=== PATIENT | female | born 1950 | race Caucasian/White ===

== ENCOUNTER 2017-05-26 18:01 | Inpatient (IN) | payer MEDICARE ==
[~2017-05-26] VITALS: Ht 177.8 cm; Wt 139.0 kg
[2017-05-26 18:21] LABS: BASO % 0.3 % (0.1-1.2); EOS % 0.4 % (0.7-5.8); GRAN # 8.9 10_X3_uL (1.6-6.1); GRAN % 85.1 % (34.0-71.1); HEMATOCRIT 33.4 % (34-45); HEMOGLOBIN 11.2 g/dL (11.2-15.7); LYMPH % 9.6 % (19.3-51.7); MEAN CORPUSCULAR HEMOGLOBIN 29.2 pg (27.0-33.0); MEAN CORPUSCULAR HGB CONC 33.5 g/dL (32.0-36.0); MEAN PLATELET VOLUME 9.3 fl (7.5-11.5); MONO # 0.5 10_X3_uL (0.2-0.9); MONO % 4.6 % (4.7-12.5); PLATELET COUNT 253 x10_3/uL (182-369); RED BLOOD COUNT 3.84 x10_6/uL (3.9-5.2); WHITE BLOOD COUNT 10.4 x10_3/uL (4.0-10.0)
[2017-05-26 18:39] LABS: ALBUMIN 3.5 gm/dL (3.4-5.0); ALKALINE PHOSPHATASE 101 U/L (50-136); ALT/SGPT 10 U/L (3.5-33.9); AST/SGOT 9 U/L (7.04-26.96); BILIRUBIN,TOTAL 0.35 mg/dL (0.0-1.0); BLOOD UREA NITROGEN 23 mg/dL (7-18); CALCIUM 9.2 mg/dL (8.7-10.7); CARBON DIOXIDE 21 mmol/L (21-32); CREATINE KINASE 47 U/L (21-215); CREATININE 0.8 mg/dL (0.6-1.3); GLUCOSE,RANDOM 214 mg/dL (70-99); POTASSIUM 3.8 mmol/L (3.5-5.1); SODIUM 136 mmol/L (136-145); TOTAL PROTEIN 6.4 gm/dL (6.4-8.2)
[2017-05-26 18:46] LABS: ARTERIAL BLD GAS O2 SATURATION 93.4 % (94-98); ARTERIAL BLOOD GAS BASE EXCESS -2.1 mmol/L (-2.0-3.0); ARTERIAL BLOOD GAS HCO3 21.7 mmol/L (22-26); ARTERIAL BLOOD GAS PCO2 35.8 mmHg (32-45)
[2017-05-27 00:58] LABS: CKMB 1.6 ng/ml (0.0-5.0)
[2017-05-27 01:13] LABS: TROP-I < 0.30 NG/ML (0.00-0.30)
[2017-05-27 06:51] LABS: BASO % 0.4 % (0.1-1.2); EOS # 0.1 10_X3_uL (0.0-0.4); EOS % 0.9 % (0.7-5.8); GRAN # 3.8 10_X3_uL (1.6-6.1); GRAN % 67.2 % (34.0-71.1); HEMATOCRIT 29.9 % (34-45); HEMOGLOBIN 9.5 g/dL (11.2-15.7); LYMPH # 1.3 10_X3_uL (1.2-3.7); LYMPH % 23.3 % (19.3-51.7); MEAN CORPUSCULAR HEMOGLOBIN 28.4 pg (27.0-33.0); MEAN CORPUSCULAR HGB CONC 31.8 g/dL (32.0-36.0); MEAN CORPUSCULAR VOLUME 89.3 fL (79-95); MEAN PLATELET VOLUME 10.2 fl (7.5-11.5); MONO # 0.5 10_X3_uL (0.2-0.9); MONO % 8.2 % (4.7-12.5); PLATELET COUNT 223 x10_3/uL (182-369); RED BLOOD COUNT 3.35 x10_6/uL (3.9-5.2); RED CELL DISTRIBUTION WIDTH 15.5 % (11.7-14.4); WHITE BLOOD COUNT 5.6 x10_3/uL (4.0-10.0)
[2017-05-27 07:33] LABS: CKMB 1.8 ng/ml (0.0-5.0)
[2017-05-27 07:37] LABS: TROP-I < 0.30 NG/ML (0.00-0.30)
[2017-05-27 08:09] LABS: CALCIUM 8.5 mg/dL (8.7-10.7); MAGNESIUM 1.5 mg/dL (1.8-2.4); POTASSIUM 3.6 mmol/L (3.5-5.1)
[2017-05-27 13:04] LABS: CKMB 2.1 ng/ml (0.0-5.0); TROP-I < 0.30 NG/ML (0.00-0.30)
[2017-05-28 06:40] LABS: HEMATOCRIT 31.2 % (34-45); HEMOGLOBIN 9.8 g/dL (11.2-15.7); MEAN CORPUSCULAR HEMOGLOBIN 28.2 pg (27.0-33.0); MEAN CORPUSCULAR HGB CONC 31.4 g/dL (32.0-36.0); MEAN CORPUSCULAR VOLUME 89.9 fL (79-95); MEAN PLATELET VOLUME 9.6 fl (7.5-11.5); RED BLOOD COUNT 3.47 x10_6/uL (3.9-5.2); RED CELL DISTRIBUTION WIDTH 15.4 % (11.7-14.4); WHITE BLOOD COUNT 5.3 x10_3/uL (4.0-10.0)
[2017-05-28 06:58] LABS: CALCIUM 8.4 mg/dL (8.7-10.7); CREATININE 1.2 mg/dL (0.6-1.3); MAGNESIUM 1.5 mg/dL (1.8-2.4); POTASSIUM 3.8 mmol/L (3.5-5.1)
[2017-05-28 14:23] LABS: URINE BILIRUBIN NEGATIVE (NEGATIVE); URINE BLOOD NEGATIVE (NEGATIVE); URINE GLUCOSE (UA) NORMAL (NORMAL); URINE KETONE NEGATIVE (NEGATIVE); URINE LEUKOCYTE ESTERASE NEGATIVE (NEGATIVE); URINE NITRATE NEGATIVE (NEGATIVE); URINE PROTEIN NEGATIVE (NEGATIVE); UROBILINOGEN NORMAL mg/dL (<1.0)
[2017-05-28 19:36] LABS: CALCIUM 8.4 mg/dL (8.7-10.7); CREATININE 1.3 mg/dL (0.6-1.3); POTASSIUM 4.2 mmol/L (3.5-5.1)
[2017-05-29 07:07] LABS: HEMATOCRIT 29.6 % (34-45); HEMOGLOBIN 9.6 g/dL (11.2-15.7); MEAN CORPUSCULAR HEMOGLOBIN 28.6 pg (27.0-33.0); MEAN CORPUSCULAR HGB CONC 32.4 g/dL (32.0-36.0); MEAN CORPUSCULAR VOLUME 88.1 fL (79-95); RED BLOOD COUNT 3.36 x10_6/uL (3.9-5.2); RED CELL DISTRIBUTION WIDTH 14.9 % (11.7-14.4); WHITE BLOOD COUNT 6.1 x10_3/uL (4.0-10.0)
[2017-05-29 07:23] LABS: CALCIUM 8.4 mg/dL (8.7-10.7); CREATININE 1.2 mg/dL (0.6-1.3); POTASSIUM 3.8 mmol/L (3.5-5.1)
[2017-05-30 06:35] LABS: CALCIUM 8.8 mg/dL (8.7-10.7); CREATININE 1.1 mg/dL (0.6-1.3); POTASSIUM 3.9 mmol/L (3.5-5.1)
[2017-05-30 06:57] LABS: HEMATOCRIT 30.2 % (34-45); HEMOGLOBIN 9.9 g/dL (11.2-15.7); MEAN CORPUSCULAR HEMOGLOBIN 28.9 pg (27.0-33.0); MEAN CORPUSCULAR HGB CONC 32.8 g/dL (32.0-36.0); MEAN PLATELET VOLUME 9.9 fl (7.5-11.5); RED BLOOD COUNT 3.43 x10_6/uL (3.9-5.2); RED CELL DISTRIBUTION WIDTH 15.2 % (11.7-14.4); WHITE BLOOD COUNT 6.8 x10_3/uL (4.0-10.0)
== END 2017-05-30 18:26 | disposition home or self-care (01) | DRG 871 ==
LOC: ER 18:01 → MS 21:43
PROVIDERS: Emergency Medicine; ADMIT Internal Medicine
DX: R65.10 Systemic inflammatory response syndrome (SIRS) of non-infectious origin without acute organ dysfunction (principal); I50.33 Acute on chronic diastolic (congestive) heart failure; J20.9 Acute bronchitis, unspecified; I11.0 Hypertensive heart disease with heart failure; I25.10 Atherosclerotic heart disease of native coronary artery without angina pectoris; Z86.73 Personal history of transient ischemic attack (TIA), and cerebral infarction without residual deficits; E11.319 Type 2 diabetes mellitus with unspecified diabetic retinopathy without macular edema; M19.90 Unspecified osteoarthritis, unspecified site; K21.9 Gastro-esophageal reflux disease without esophagitis; J30.9 Allergic rhinitis, unspecified; R53.1 Weakness; K58.9 Irritable bowel syndrome, unspecified; J45.909 Unspecified asthma, uncomplicated; H40.9 Unspecified glaucoma; I07.1 Rheumatic tricuspid insufficiency; I34.0 Nonrheumatic mitral (valve) insufficiency; R06.02 Shortness of breath; Z88.0 Allergy status to penicillin; Z90.710 Acquired absence of both cervix and uterus; Z79.891 Long term (current) use of opiate analgesic; Z79.899 Other long term (current) drug therapy; Z79.02 Long term (current) use of antithrombotics/antiplatelets; Z79.84 Long term (current) use of oral hypoglycemic drugs; Z77.22 Contact with and (suspected) exposure to environmental tobacco smoke (acute) (chronic)
CPT/HCPCS: 36415; 36600; 71010; 71020; 80048; 80053; 80061; 81003; 82550; 82553; 82803; 82962; 83036; 83605; 83735; 83880; 85025; 87040; 93005; 93041; 93306; 94640; 94664; 96374; 97116; 97161; 99070; 99284; 99285-25; G0378

== ENCOUNTER 2017-05-26 18:01 | Observation (INO) | payer MEDICARE, OTHER | END 2017-05-28 13:00 | disposition other institution (70) | LOC: ER 18:01 → MS 21:43 | PROVIDERS: ADMIT Internal Medicine | DX: R65.10 Systemic inflammatory response syndrome (SIRS) of non-infectious origin without acute organ dysfunction (principal); J20.9 Acute bronchitis, unspecified; I11.0 Hypertensive heart disease with heart failure; I50.33 Acute on chronic diastolic (congestive) heart failure; I25.10 Atherosclerotic heart disease of native coronary artery without angina pectoris; Z86.73 Personal history of transient ischemic attack (TIA), and cerebral infarction without residual deficits; E11.319 Type 2 diabetes mellitus with unspecified diabetic retinopathy without macular edema; M19.90 Unspecified osteoarthritis, unspecified site; K21.9 Gastro-esophageal reflux disease without esophagitis; J30.9 Allergic rhinitis, unspecified; R53.1 Weakness; K58.9 Irritable bowel syndrome, unspecified; J45.909 Unspecified asthma, uncomplicated; H40.9 Unspecified glaucoma; I07.1 Rheumatic tricuspid insufficiency; I34.0 Nonrheumatic mitral (valve) insufficiency; R06.02 Shortness of breath; Z88.0 Allergy status to penicillin; Z90.710 Acquired absence of both cervix and uterus; Z79.891 Long term (current) use of opiate analgesic; Z79.899 Other long term (current) drug therapy; Z79.02 Long term (current) use of antithrombotics/antiplatelets; Z79.84 Long term (current) use of oral hypoglycemic drugs; Z77.22 Contact with and (suspected) exposure to environmental tobacco smoke (acute) (chronic) | CPT/HCPCS: 99284; 99285-25 ==